=== PATIENT | female | born 1960 | race Caucasian/White ===

== ENCOUNTER 2024-10-31 13:03 | Emergency (ER) | payer MEDICARE ==
[~2024-10-31] VITALS: Ht 165.1 cm; Wt 63.5 kg
[2024-10-31 13:20] VITALS: BP 144/98; TEMP 98.3; O2SAT 98
[2024-10-31] MEDS ORDERED: BUPIVACAINE 0.25% 75 MG/30 ML VIAL ONE (13:44)
[2024-10-31] MEDS: BUPIVACAINE 0.25% 75 MG/30 ML VIAL IJ ONE (13:45)
[2024-10-31] MEDS ORDERED: HYDR-4303 PO (14:46)
[2024-10-31] MEDS ORDERED: AMOX-430 PO (14:46)
[2024-10-31] MEDS ORDERED: IBUP-1955 PO (14:46)
== END 2024-10-31 14:57 | disposition home or self-care (01) ==
LOC: ER 13:27
DX: K04.7 Periapical abscess without sinus (principal); Z60.2 Problems related to living alone
CPT/HCPCS: 99283; J3490